=== PATIENT | male | born 1960 | race American Indian/Alaskan Native ===

== ENCOUNTER 2016-11-18 08:06 | Emergency (ER) | payer SELFPAY ==
[2016-11-18 08:13] VITALS: BP 137/91
--- NOTE | 2016-11-18 10:52 | Emergency Department Report ---
ED Extremity Problem HPI - General Chief complaint: Extremity Injury, Lower Stated complaint: LT FOOT PAIN Time Seen by Provider: 11/18/16 10:19 Source: patient Mode of arrival: Ambulatory Limitations: No Limitations - History of Present Illness Initial comments: PT c/o painful bump on his foot x 1 month. PT states he could not sleep last night because he his entire foot was throbbing. PT states he walks everywhere. PT states it is a seven minute walk to work. PT states he could not go to work today because of the pain. PT states his brother needed foot surgery, but is not sure why. Pt denies injury to the L foot MD Complaint: extremity pain Onset/Timin -: Gradual, month(s) Location: left, lower extremity, other (foot ) -: No fever Quality: constant Consistency: constant Improves with: rest Worsens with: weight bearing, walking Associated Symptoms: denies other symptoms. denies: fever - Related Data Previous Rx's Medication Instructions Recorded Last Taken Type amLODIPine [Norvasc] 5 mg PO QDAY #30 tablet 08/13/16 Unknown Rx traMADol [Ultram] 50 mg PO Q6HR PRN #12 tablet 11/18/16 Unknown Rx Allergies Allergy/AdvReac Type Severity Reaction Status Date / Time hazelnut Allergy Itching Verified 08/10/16 18:02 pecan nut Allergy Anaphylaxis Verified 08/10/16 18:02 shrimp Allergy Itching Verified 08/10/16 18:02 walnut Allergy Anaphylaxis Verified 08/10/16 18:02 ED Review of Systems ROS: Stated complaint: LT FOOT PAIN Other details as noted in HPI Comment: All other systems reviewed and negative Constitutional: denies: chills, fever Gastrointestinal: denies: abdominal pain, nausea, vomiting Neurological: as per HPI ED Past Medical Hx - Past Medical History Previous Medical History?: Yes Hx Hypertension: Yes Additional medical history: SICKLE CELL TRAIT - Surgical History Past Surgical History?: Yes Additional Surgical History: BILATERAL HEEL SPURS REMOVED - Social History Smoking Status: Current Every Day Smoker Substance Use Type: Prescribed - Medications Home Medications: Home Medications Medication Instructions Recorded Confirmed Last Taken Type amLODIPine [Norvasc] 5 mg PO QDAY #30 tablet 08/13/16 Unknown Rx traMADol [Ultram] 50 mg PO Q6HR PRN #12 tablet 11/18/16 Unknown Rx ED Physical Exam - General Limitations: No Limitations General appearance: alert, in no apparent distress - Head Head exam: Present: atraumatic, normocephalic, normal inspection - Eye Eye exam: Present: normal appearance. Absent: conjunctival injection - ENT ENT exam: Present: normal exam, other - Neck Neck exam: Present: normal inspection, full ROM - Respiratory Respiratory exam: Present: normal lung sounds bilaterally. Absent: respiratory distress, wheezes, rales, chest wall tenderness - Cardiovascular Cardiovascular Exam: Present: regular rate, normal rhythm, normal heart sounds - GI/Abdominal GI/Abdominal exam: Present: soft. Absent: tenderness - Extremities Exam Extremities exam: Present: normal capillary refill. Absent: pedal edema, calf tenderness - Expanded Lower Extremity Exam Left Lower Leg exam: Present: normal inspection, full ROM Ankle exam: Present: normal inspection, full ROM Foot/Toe exam: Present: full ROM, tenderness (to quarter sized callus on the plantar aspect of the L foot ). Absent: swelling, deformity, crepidus, erythema , foreign body, calcaneal tenderness, tenderness at base of 5th metatarsal, subungual hematoma Neuro vascular tendon exam: Present: no vascular compromise. Absent: pulse deficit - Back Exam Back exam: Present: normal inspection, full ROM - Neurological Exam Neurological exam: Present: alert, oriented X3, normal gait - Psychiatric Psychiatric exam: Present: normal affect, normal mood - Skin Skin exam: Present: warm, dry, intact, normal color ED Course Vital Signs 11/18/16 08:10 Temperature 97.8 F Pulse Rate 81 Respiratory 20 Rate Blood Pressure 137/91 O2 Sat by Pulse 100 Oximetry - Reevaluation(s) Reevaluation #1: 11/18/16 10:53 Pt given verbal instructions on home care. No questions at this time. PT states he has less pain with ambulation sp callous shaved down - Procedure Description Procedures done: skin to L foot cleansed with betadine and an 11 blade was used to shave down callus. pt tolerated the procedure well and had no immediate complications - Pulse Oximetry Interpretation Digit-Finger Initial Pulse Oximetry Readin Actions Taken: none ED Medical Decision Making - Differential Diagnosis injury, callus, cellulitis Critical Care Time: No Critical care attestation.: If time is entered above; I have spent that time in minutes in the direct care of this critically ill patient, excluding procedure time. ED Disposition Clinical Impression: Callus of foot Disposition: DISCHARGED TO HOME OR SELFCARE Is pt being admited?: No Does the pt Need Aspirin: No Condition: Stable Instructions: Diabetic Foot Care (ED) Additional Instructions: warm Episom salt soaks at least 4 times a day Use pumice stone on callused area Buy OTC orthotics to prevent callus from re-forming No driving or ETOH if needed to take Ultram for pain Prescriptions: traMADol [Ultram] 50 mg PO Q6HR PRN #12 tablet PRN Reason: Pain Referrals: PRIMARY CARE, [Primary Care Provider] - 3-5 Days SRI NORIEGA MD [Staff Physician] - 3-5 Days [facility] [Outside] - 3-5 Days Forms: Work/School Release Form(ED) Time of Disposition: 10:56
== END 2016-11-18 11:10 | disposition home or self-care (01) ==
LOC: ED 08:06
DX: L84 Corns and callosities (principal); I10 Essential (primary) hypertension; F17.200 Nicotine dependence, unspecified, uncomplicated
CPT/HCPCS: 99282

== ENCOUNTER 2016-11-25 16:31 | Emergency (ER) | payer SELFPAY ==
[2016-11-25] MEDS ORDERED: NORCO 5/325 PO ONE (20:01)
--- NOTE | 2016-11-25 20:07 | Emergency Department Report ---
HPI - General Chief Complaint: Back Pain/Injury Time Seen by Provider: 11/25/16 19:01 - HPI HPI: The patient is a 56-year-old male presents for evaluation of back pain or the patient reports pain to the right shoulder, possible right leg, and bilateral lower back for the past 2 days since a fall off of a balcony, approximately 10 feet in the air. The patient states that his right leg pain has been 8 out of 10 in severity, aching in quality, exacerbated with movement of the leg, present since his fall. His back pain has been moderate in severity, aching in quality as well, exacerbated with bending at the back, and improve her wrist. She states that his right shoulder pain has been mild in severity, sharp in quality, exacerbated with movement of the right arm at the shoulder joint. He shares that he was evaluated at [facility] for same complaints, shortly after his fall 2 days ago. He states that he received x-rays of his shoulder, back, and leg, all of which were negative. She denies, injury to the head, headache, neck pain or stiffness, chest pain, dyspnea, abdominal pain, paresthesias or motor deficit in the arms at rest, urine or bowel incontinence or retention, or other focal neurological deficits. ED Past Medical Hx - Past Medical History Previous Medical History?: Yes Hx Hypertension: Yes Additional medical history: SICKLE CELL TRAIT - Surgical History Past Surgical History?: Yes Additional Surgical History: BILATERAL HEEL SPURS REMOVED - Social History Smoking Status: Current Every Day Smoker Substance Use Type: None - Medications Home Medications: Home Medications Medication Instructions Recorded Confirmed Last Taken Type amLODIPine [Norvasc] 5 mg PO QDAY #30 tablet 08/13/16 Unknown Rx traMADol [Ultram] 50 mg PO Q6HR PRN #12 tablet 11/18/16 Unknown Rx HYDROcodone/APAP 7.5-325 [[place] 1 each PO Q8HR PRN #15 tablet 11/25/16 Unknown Rx 7.5-325 mg TAB] Ibuprofen [Motrin] 800 mg PO Q8HR PRN #15 tablet 11/25/16 Unknown Rx ED Review of Systems ROS: Stated complaint: FELL OFF [employer] Other details as noted in HPI Constitutional: denies: fever ENT: denies: throat or neck pain Respiratory: denies: cough, shortness of breath Cardiovascular: denies: chest pain Endocrine: denies unexplained weight loss or gain Gastrointestinal: denies: abdominal pain, nausea Genitourinary: denies: dysuria Musculoskeletal: reports shoulder, back, and leg pain denies: leg swelling Skin: denies: rash Neurological: denies: headache Hematological/Lymphatic: denies: easy bleeding or easy bruising Psych: denies sadness or hopelessness Physical Exam - Physical Exam Vital Signs: Vital Signs 11/25/16 16:38 Temperature 97.8 F Pulse Rate 73 Respiratory 16 Rate Blood Pressure 131/86 O2 Sat by Pulse 100 Oximetry Physical Exam: General: well-nourished, well-developed, no acute distress Head: Normocephalic, atraumatic Eyes: normal sclera ENT: Mucous membranes are pink and moist Neck: trachea midline, neck supple, No neck stiffness, no midline cervical spinous tenderness to palpation, no spinous step-off or obvious deformity Respiratory: Breath sounds equal bilaterally, no wheezing, rales, or rhonchi Cardio: S1 and S2 present, no murmurs, rubs, gallops, capillary refill is brisk Abdomen: Normoactive bowel sounds, soft abdomen, no rigidity, no guarding or rebound tenderness Chest WALL/Back: Tenderness to palpation present to bilateral lumbar paraspinal musculature, pain is elicited with flexion at the hip, normal active range of motion at the hip intact, no spinous step-off or obvious deformity, ipsi- lateral and contralateral straight leg raise tests are negative. On extremity testing, compartments are soft and pliable, no obvious gross motor strength deficit, 5+ motor strength, including extension of the great toe bilaterally, no muscular atrophy, spasticity, fasciculations, or clonus, no obvious gross sensation deficit including web space between 1st and 2nd toes, reflexes 2+ & symmetric on DTR testing at the knee and ankle joints, distal pulses intact. Musc: Examination of the right shoulder unremarkable, tenderness to palpation presents to the right condyle and medial trapezius, examination of the right proximal quadriceps unremarkable, there is no redness, ecchymosis, crepitus, fluctuance, warmth or swelling, proximal and mid right quadriceps tendon to palpation, right leg compartments are soft and pliable, no signs compartments syndrome, quadriceps tendon extensor function intact, distal sensation and motor function intact in the legs bilaterally. Skin: No rash Neuro: no facial drooping, normal speech Psych: Normal affect ED Course Vital Signs 11/25/16 16:38 Temperature 97.8 F Pulse Rate 73 Respiratory 16 Rate Blood Pressure 131/86 O2 Sat by Pulse 100 Oximetry ED Medical Decision Making - Medical Decision Making The patient was seen and examined by myself. The patient is placed on a court monitor and continuous pulse ox. On initial evaluation, the patient was found to be in no distress. Evaluation orders were placed. The patient given a Tab of [place] for pain. The patient declines x-rays of the back and right femur. The patient was reevaluated and reported that their symptoms were markedly improved. The patient is stable for discharge with outpatient follow- up. The patient is given follow-up and return instructions. The patient expressed understanding and agreed with the plan. The patient is discharged in stable condition. Critical care attestation.: If time is entered above; I have spent that time in minutes in the direct care of this critically ill patient, excluding procedure time. ED Disposition Clinical Impression: Acute pain of right shoulder, Acute bilateral low back pain without sciatica, Pain of right lower extremity Disposition: DISCHARGED TO HOME OR SELFCARE Is pt being admited?: No Does the pt Need Aspirin: No Condition: Stable Instructions: Musculoskeletal Pain (ED), Shoulder Sprain (ED), Low Back Strain (ED) Additional Instructions: Do not take more than the prescribed dose of pain medicine, or combine or take the pain medicine prescribed to you today with other pain medicine, sleeping medicine or other sedatives, or with alcohol, as doing so may cause central nervous system sedation and respiratory depression, and potentially cause you to stop breathing and . Additionally, do not drive a vehicle, operate heavy machinery, or engage in any activity that would cause harm to yourself or others after taking the pain medicine prescribed to you. Prescriptions: HYDROcodone/APAP 7.5-325 [[place] 7.5-325 mg TAB] 1 each PO Q8HR PRN #15 tablet PRN Reason: Pain Ibuprofen [Motrin] 800 mg PO Q8HR PRN #15 tablet PRN Reason: Pain Referrals: PRIMARY CARE, [Primary Care Provider] - 3-5 Days PARIS ROSENBAUM MD [Staff Physician] - 3-5 Days Forms: Work/School Release Form(ED), Accompanied Note Time of Disposition: 20:07
[2016-11-25 20:24] VITALS: BP 147/86
== END 2016-11-25 21:14 | disposition home or self-care (01) ==
LOC: ED 16:31
DX: M25.511 Pain in right shoulder (principal); M54.5 Low back pain; M79.604 Pain in right leg; I10 Essential (primary) hypertension; D57.3 Sickle-cell trait; F17.200 Nicotine dependence, unspecified, uncomplicated; W19.XXXD Unspecified fall, subsequent encounter
CPT/HCPCS: 99283

== ENCOUNTER 2017-02-06 08:55 | Emergency (ER) | payer SELFPAY ==
[2017-02-06 09:07] VITALS: BP 146/101
--- NOTE | 2017-02-06 10:13 | XRay Report ---
ROUTINE CHEST, TWO VIEWS: SOB. PA and lateral views demonstrate the heart and mediastinal contour to be of normal size and shape. The lungs are clear and fully expanded and the soft tissues and bony structures are normal. IMPRESSION: Normal study.
[2017-02-06] MEDS ORDERED: TYLENOL #3 PO ONE (12:26)
--- NOTE | 2017-02-06 12:34 | Emergency Department Report ---
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 who presents for cough productive green , noc wheezing x 2 months pt denies sob no cp no dizziness no light headedness no luna, no fever no chills MD Complaint: cough, nasal congestion, sinus pain Onset/Timin -: Gradual, month(s) Severity: moderate Severity scale (0 -10): 4 Quality: other (cough) Consistency: constant, intermittent Improves With: nothing (nothing tried) Worsens With: activity Associated Symptoms: rhinorrhea, nasal congestion, cough, ear pain Treatments Prior to Arrival: none - Related Data Previous Rx's Medication Instructions Recorded Last Taken Type amLODIPine [Norvasc] 5 mg PO QDAY #30 tablet 08/13/16 Unknown Rx traMADol [Ultram] 50 mg PO Q6HR PRN #12 tablet 11/18/16 Unknown Rx HYDROcodone/APAP 7.5-325 [[place] 1 each PO Q8HR PRN #15 tablet 11/25/16 Unknown Rx 7.5-325 mg TAB] Ibuprofen [Motrin] 800 mg PO Q8HR PRN #15 tablet 11/25/16 Unknown Rx ALBUTEROL Inhaler [ProAir HFA 2 puff IH QID PRN #1 inhalation 02/06/17 Unknown Rx Inhaler] Azithromycin [Zithromax Z-LIOR] 250 mg PO DAILY #6 tab 02/06/17 Unknown Rx P-Ephed HCl/Codeine/Guaifen 5 ml PO QID PRN #120 ml 02/06/17 Unknown Rx [Cheratussin DAC 30-10-100 mg/5 ml] Allergies Allergy/AdvReac Type Severity Reaction Status Date / Time hazelnut Allergy Itching Verified 02/06/17 09:00 pecan nut Allergy Anaphylaxis Verified 02/06/17 09:00 shrimp Allergy Itching Verified 02/06/17 09:00 walnut Allergy Anaphylaxis Verified 02/06/17 09:00 ED Review of Systems ROS: Stated complaint: RT HIP PAIN AND COLD X 1 MONTH Other details as noted in HPI Constitutional: denies: chills, fever Eyes: denies: eye pain, eye discharge, vision change ENT: ear pain, congestion Respiratory: cough. denies: shortness of breath, wheezing Cardiovascular: denies: chest pain, palpitations, dyspnea on exertion, paroxysmal nocturnal dyspnea Endocrine: no symptoms reported Gastrointestinal: denies: abdominal pain, nausea, diarrhea Genitourinary: denies: urgency, dysuria Musculoskeletal: denies: back pain, joint swelling, arthralgia Skin: denies: rash, lesions Neurological: denies: headache, weakness, paresthesias Psychiatric: denies: anxiety, depression Hematological/Lymphatic: denies: easy bleeding, easy bruising ED Past Medical Hx - Past Medical History Hx Hypertension: Yes Additional medical history: SICKLE CELL TRAIT. "PROSTATE" - Surgical History Additional Surgical History: BILATERAL HEEL SPURS REMOVED - Social History Smoking Status: Current Every Day Smoker Substance Use Type: Alcohol - Medications Home Medications: Home Medications Medication Instructions Recorded Confirmed Last Taken Type amLODIPine [Norvasc] 5 mg PO QDAY #30 tablet 08/13/16 Unknown Rx traMADol [Ultram] 50 mg PO Q6HR PRN #12 tablet 11/18/16 Unknown Rx HYDROcodone/APAP 7.5-325 [[place] 1 each PO Q8HR PRN #15 tablet 11/25/16 Unknown Rx 7.5-325 mg TAB] Ibuprofen [Motrin] 800 mg PO Q8HR PRN #15 tablet 11/25/16 Unknown Rx ALBUTEROL Inhaler [ProAir HFA 2 puff IH QID PRN #1 inhalation 02/06/17 Unknown Rx Inhaler] Azithromycin [Zithromax Z-LIOR] 250 mg PO DAILY #6 tab 02/06/17 Unknown Rx P-Ephed HCl/Codeine/Guaifen 5 ml PO QID PRN #120 ml 02/06/17 Unknown Rx [Cheratussin DAC 30-10-100 mg/5 ml] ED Physical Exam - General Limitations: No Limitations General appearance: alert, in no apparent distress - Head Head exam: Present: atraumatic, normocephalic - Eye Eye exam: Present: normal appearance, PERRL, EOMI Pupils: Present: normal accommodation - ENT ENT exam: Present: TM's normal bilaterally, normal external ear exam - Expanded ENT Exam Expanded Mouth exam: Present: normal external inspection, tongue normal. Absent: trismus Teeth exam: Present: normal inspection Throat exam: Positive: tonsillar erythema, tonsillomegaly, other (clear post nasal drip, uvula midline no swelling nasal turbinate erythema boggy, mild maxillary sinus pain to palpation ). Negative: tonsillar exudate, R peritonsillar mass, L peritonsillar mass - Neck Neck exam: Present: normal inspection, full ROM. Absent: lymphadenopathy, thyromegaly - Respiratory Respiratory exam: Present: normal lung sounds bilaterally. Absent: respiratory distress, wheezes, stridor, chest wall tenderness - Cardiovascular Cardiovascular Exam: Present: regular rate, normal rhythm. Absent: systolic murmur, diastolic murmur, rubs, gallop - GI/Abdominal GI/Abdominal exam: Present: soft, normal bowel sounds - Rectal Rectal exam: Present: deferred - Extremities Exam Extremities exam: Present: normal inspection - Back Exam Back exam: Present: normal inspection - Neurological Exam Neurological exam: Present: alert, oriented X3 - Psychiatric Psychiatric exam: Present: normal affect, normal mood - Skin Skin exam: Present: warm, dry, intact, normal color. 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 green , noc wheezing x 2 months cxr: normal no infiltrates no opacities normal chest xray , ENT: nose boggy clear post nasal drip, mild maxillary sinus pain to palpation no swelling no erythema, ear: normal no erythema no swelling no pain , pharynx: patent airway no swelling no exudate no lesion mild erythema , uvula midline no stidor lungs clear bilat all lobes no wheezing , no luna pt does no appear toxic plan: tx of bronchitis as cough persisted for 2 months , pt advised to stop smoking pt will follow up with pcp upon appointment, pt with hx of htn however has not taken bp medications today , pt instructed to take medications upon arrival to home pt verbalized understanding of same, pt is currently asyptomatic no headache no dizziness no cp no sob. ambulatory gait steady with nad. Critical care attestation.: If time is entered above; I have spent that time in minutes in the direct care of this critically ill patient, excluding procedure time. ED Disposition Clinical Impression: Bronchitis Disposition: DC-01 TO HOME OR SELFCARE Is pt being admited?: No Does the pt Need Aspirin: No Condition: Good Instructions: Chronic Bronchitis (ED), Acute Bronchitis (ED) Additional Instructions: follow up with your primary care doctor as directed take all medications as prescribed stop smoking, follow up with urology upon appointment Dr. Hamilton Naranjo [phone] Prescriptions: ALBUTEROL Inhaler [ProAir HFA Inhaler] 2 puff IH QID PRN #1 inhalation PRN Reason: Shortness Of Breath Azithromycin [Zithromax Z-LIOR] 250 mg PO DAILY #6 tab P-Ephed HCl/Codeine/Guaifen [Cheratussin DAC 30-10-100 mg/5 ml] 5 ml PO QID PRN #120 ml PRN Reason: Cough Referrals: PRIMARY CARE, [Primary Care Provider] - 3-5 Days Forms: Work/School Release Form(ED) Time of Disposition: 12:42
== END 2017-02-06 12:59 | disposition home or self-care (01) ==
LOC: ED 08:55
DX: J40 Bronchitis, not specified as acute or chronic (principal); I10 Essential (primary) hypertension; F17.200 Nicotine dependence, unspecified, uncomplicated
CPT/HCPCS: 71020